=== PATIENT | male | born 1985 | race Caucasian/White ===

== ENCOUNTER 2016-11-09 22:07 | Emergency (ER) | payer OTHER ==
[2016-11-09 22:18] VITALS: BP 138/89; PULSE 67; RESP 16; TEMP 97.3; O2SAT 98
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
[2016-11-09] MEDS ORDERED: IBUPROFEN 800 MG TAB PO ONE (22:29)
[2016-11-09] MEDS ORDERED: OXYCODONE/APAP 5/325MG PREPACK#4 BTL TAKEHOME ONE (22:29)
[2016-11-09] MEDS ORDERED: IBUPROFEN 200 MG TAB PO ONE (22:33)
== END 2016-11-09 23:04 | disposition home or self-care (01) ==
DX: T20.20XA Burn of second degree of head, face, and neck, unspecified site, initial encounter (principal); T54.2X1A Toxic effect of corrosive acids and acid-like substances, accidental (unintentional), initial encounter; X58.XXXA Exposure to other specified factors, initial encounter